=== PATIENT | male | born 1960 | race Hispanic/Latino ===

== ENCOUNTER 2020-04-25 14:00 | Emergency (ER) | payer SELFPAY ==
[2020-04-25] MEDS ORDERED: ACETAMINOPHEN 325 MG TABLET ONE (14:49)
[2020-04-25 16:39] LABS: SARS-COV-2 RT PCR POSITIVE (NEGATIVE)
[2020-04-25 16:57] LABS: Absolute Lymphocytes (CBC) 0.6 K/uL (0.7-4.9); Basophils % 0.2 % (0-1.3); Hematocrit 46.5 % (39.6-49.0); Lymphocytes % 8.3 % (15.3-44.8); RBC Red Blood Cell Count 5.42 M/uL (4.33-5.43)
[2020-04-25 17:06] LABS: Potassium 3.8 mmol/L (3.5-5.1)
--- NOTE | 2020-04-25 17:29 | EDPHYS ---
Physician Documentation [facility] Name: Lukas Gomez Age: 59 yrs Sex: Male : 1960 Arrival Date: 04/25/2020 Time: 14:04 Bed 28 Private MD: ED Physician Jesus Cheung HPI: 04/25 17:25 This 59 yrs old Male presents to ER via Ambulatory with complaints of kb Shortness Of Breath, Decreased Appetite. 17:25 The patient or guardian reports difficulty breathing, flu symptoms, myalgias, no kb appetite. Onset: The symptoms/episode began/occurred 4 day(s) ago. Severity of symptoms: At their worst the symptoms were mild, moderate, in the emergency department the symptoms are unchanged. Modifying factors: The symptoms are alleviated by nothing, the symptoms are aggravated by nothing. Associated signs and symptoms: Pertinent positives: fever, Pertinent negatives: chest pain, diarrhea, ear ache, nausea, rhinorrhea, sore throat, vomiting. The patient has not experienced similar symptoms in the past. The patient has not recently seen a physician. Pt reports he hasn't had an appetite for 4 days and he sometimes gets shortness of breath on exertion. . Historical: - Allergies: 14:23 No Known Allergies; em - PMHx: 14:23 None; em - PSHx: 14:23 None; em - Immunization history:: Adult Immunizations up to date. - Social history:: Smoking status: Patient denies any tobacco usage or history of. ROS: 17:24 ENT: Negative for injury, pain, and discharge, Cardiovascular: Negative for chest pain, kb palpitations, and edema, Abdomen/GI: Negative for abdominal pain, nausea, vomiting, diarrhea, and constipation, Back: Negative for injury and pain, MS/Extremity: Negative for injury and deformity, Skin: Negative for injury, rash, and discoloration, Neuro: Negative for headache, weakness, numbness, tingling, and seizure. 17:24 Constitutional: Positive for poor PO intake, Negative for body aches, chills, fatigue, fever, malaise, weight loss. 17:24 Respiratory: Positive for dyspnea on exertion. Exam: 17:25 Constitutional: This is a well developed, well nourished patient who is awake, alert, kb and in no acute distress. Head/Face: Normocephalic, atraumatic. Chest/axilla: Normal chest wall appearance and motion. Nontender with no deformity. No lesions are appreciated. Cardiovascular: Regular rate and rhythm with a normal S1 and S2. No gallops, murmurs, or rubs. Normal PMI, no JVD. No pulse deficits. Respiratory: Lungs have equal breath sounds bilaterally, clear to auscultation and percussion. No rales, rhonchi or wheezes noted. No increased work of breathing, no retractions or nasal flaring. Abdomen/GI: Soft, non-tender, with normal bowel sounds. No distension or tympany. No guarding or rebound. No evidence of tenderness throughout. Back: No spinal tenderness. No costovertebral tenderness. Full range of motion. Skin: Warm, dry with normal turgor. Normal color with no rashes, no lesions, and no evidence of cellulitis. MS/ Extremity: Pulses equal, no cyanosis. Neurovascular intact. Full, normal range of motion. Neuro: Awake and alert, GCS 15, oriented to person, place, time, and situation. Cranial nerves II-XII grossly intact. Motor strength 5/5 in all extremities. Sensory grossly intact. Cerebellar exam normal. Normal gait. Vital Signs: 14:19 BP 136 / 86; Pulse 112; Resp 18; Temp 101.4; Pulse Ox 95% on R/A; Weight 99.79 kg; em Height 5 ft. 9 in. (175.26 cm); Pain 0/10; 16:00 BP 131 / 94; Pulse 109; Resp 20; Pulse Ox 95% on R/A; vg1 17:00 BP 122 / 91; Pulse 107; Resp 20; Temp 99.0; Pulse Ox 93% on R/A; vg1 17:20 Temp 99.0; vg1 14:19 Body Mass Index 32.49 (99.79 kg, 175.26 cm) em MDM: 16:03 Patient medically screened. kb 17:24 Data reviewed: vital signs, nurses notes. Data interpreted: Pulse oximetry: on room air kb is 95 %. Interpretation: normal. Counseling: I had a detailed discussion with the patient and/or guardian regarding: the historical points, exam findings, and any diagnostic results supporting the discharge/admit diagnosis, lab results, radiology results, the need for outpatient follow up, a family practitioner, to return to the emergency department if symptoms worsen or persist or if there are any questions or concerns that arise at home. 04/25 16:25 Order name: Chest Single View XRAY; Complete Time: 17:53 kb 04/25 16:25 Order name: CBC with Diff; Complete Time: 17:21 kb 04/25 16:25 Order name: Basic Metabolic Panel; Complete Time: 17:12 kb 04/25 16:39 Order name: COVID-19/FLU A+B; Complete Time: 16:40 EDMS 04/25 16:25 Order name: IV Start; Complete Time: 16:39 kb Administered Medications: 14:39 Drug: Tylenol 650 mg Route: PO; em 17:20 Follow up: Temp 99.0; Response: Temperature is decreased vg1 17:55 Drug: Zithromax 500 mg Route: PO; vg1 18:08 Follow up: Response: Medication administered at discharge. vg1 17:55 Drug: SOLU-Medrol 125 mg Route: IVP; Site: left antecubital; vg1 18:07 Follow up: Response: Medication administered at discharge. vg1 Disposition: 04/26 06:08 Co-signature as Attending Physician, Jesus Cheung MD I agree with the assessment and kdr plan of care. Disposition: 04/25/20 17:27 Discharged to Home. Impression: Coronavirus infection, unspecified, Viral pneumonia, unspecified. - Condition is Stable. - Discharge Instructions: Viral Respiratory Infection, Baxv-Qo-Geni, COVID-19. - Prescriptions for Prednisone 20 mg Oral Tablet - take 1 tablet by ORAL route once daily for 5 days; 5 tablet. Albuterol Sulfate 90 mcg/actuation - inhale 1-2 puff by INHALATION route every 4-6 hours; 1 Inhaler. Zithromax 500 mg Oral Tablet - take 1 tablet by ORAL route once daily for 5 days; 5 tablet. - Medication Reconciliation Form, Thank You Letter, Antibiotic Education, Prescription Opioid Use form. - Follow up: Emergency Department; When: As needed; Reason: Worsening of condition. Follow up: Private Physician; When: 2 - 3 days; Reason: Recheck today's complaints, Continuance of care, Re-evaluation by your physician. Signatures: Dispatcher [employer] Lulu Laureano, CLIENT CARE CONSULTANT-C CLIENT CARE CONSULTANT-Ckb Jesus Cheung MD MD kdr Mart Morales, RN RN Kellee Crawford, RN RN vg1 Corrections: (The following items were deleted from the chart) 04/25 15:31 14:33 CORONAVIRUS+MR.LAB.BRZ ordered. EDMS EDMS 15:32 14:33 Influenza Screen (A \T\ B)+BA.LAB.BRZ ordered. EDIN EDMS 18:07 17:27 04/25/2020 17:27 Discharged to Home. Impression: Coronavirus infection, vg1 unspecified; Viral pneumonia, unspecified. Condition is Stable. Forms are Medication Reconciliation Form, Thank You Letter, Antibiotic Education, Prescription Opioid Use. Follow up: Emergency Department; When: As needed; Reason: Worsening of condition. Follow up: Private Physician; When: 2 - 3 days; Reason: Recheck today's complaints, Continuance of care, Re-evaluation by your physician. kb
--- NOTE | 2020-04-25 17:29 | ER ---
Nurse's Notes [facility] Name: Lukas Gomez Age: 59 yrs Sex: Male : 1960 Arrival Date: 04/25/2020 Time: 14:04 Bed 28 Private MD: Diagnosis: Coronavirus infection, unspecified;Viral pneumonia, unspecified Presentation: 04/25 14:19 Chief complaint: Patient states: decreased appetite for 4 days, denies body aches, em denies fever or N/V, had covid test at [facility] 2 days ago but was not given any results. Coronavirus screen: Client presents with at least one sign or symptom that may indicate coronavirus-19. Standard/surgical mask placed on the client. Provider contacted for isolation considerations. The client indicates previous COVID test results are pending. Date of collection: March 23, 2021. Ebola Screen: Patient negative for fever greater than or equal to 101.5 degrees Fahrenheit, and additional compatible Ebola Virus Disease symptoms Patient denies exposure to infectious person. Patient denies travel to an Ebola-affected area in the 21 days before illness onset. No symptoms or risks identified at this time. Initial Sepsis Screen: Does the patient meet any 2 criteria? Temp <36.0*C (96.8*F)) or > 38.3*C (100.9*F). HR > 90 bpm. Does the patient have a suspected source of infection? No. Patient's initial sepsis screen is negative. Risk Assessment: Do you want to hurt yourself or someone else? Patient reports no desire to harm self or others. Onset of symptoms was April 21, 2019. 14:19 Method Of Arrival: Ambulatory em 14:19 Acuity: MITZY 3 em Triage Assessment: 16:20 Respiratory: Reports cough that is non-productive, Onset: The symptoms/episode vg1 began/occurred gradually, the patient has mild shortness of breath. Historical: - Allergies: 14:23 No Known Allergies; em - PMHx: 14:23 None; em - PSHx: 14:23 None; em - Immunization history:: Adult Immunizations up to date. - Social history:: Smoking status: Patient denies any tobacco usage or history of. Screenin:20 Abuse screen: Denies threats or abuse. Nutritional screening: No deficits noted. vg1 Tuberculosis screening: No symptoms or risk factors identified. Fall Risk None identified. Assessment: 16:20 General: Appears in no apparent distress. comfortable, Behavior is calm, cooperative. vg1 16:20 Pain: Denies pain. Neuro: Level of Consciousness is awake, alert, obeys commands, vg1 Oriented to person, place, time, situation. Cardiovascular: Patient's skin is warm and dry. Respiratory: Airway is patent Respiratory effort is even, unlabored, Respiratory pattern is regular, symmetrical, Breath sounds are clear bilaterally. GI: No signs and/or symptoms were reported involving the gastrointestinal system. : No signs and/or symptoms were reported regarding the genitourinary system. EENT: No signs and/or symptoms were reported regarding the EENT system. Derm: Skin is intact, is healthy with good turgor. Musculoskeletal: Circulation, motion, and sensation intact. 16:37 Reassessment: Lab called spoke with Neeta Craven, and patient Covid results are vg1 Positive. Provider Notified. 17:45 Reassessment: Patient appears in no apparent distress at this time. Patient is alert, vg1 oriented x 3, equal unlabored respirations, skin warm/dry/pink. Patient denies pain at this time. Vital Signs: 14:19 BP 136 / 86; Pulse 112; Resp 18; Temp 101.4; Pulse Ox 95% on R/A; Weight 99.79 kg; em Height 5 ft. 9 in. (175.26 cm); Pain 0/10; 16:00 BP 131 / 94; Pulse 109; Resp 20; Pulse Ox 95% on R/A; vg1 17:00 BP 122 / 91; Pulse 107; Resp 20; Temp 99.0; Pulse Ox 93% on R/A; vg1 17:20 Temp 99.0; vg1 14:19 Body Mass Index 32.49 (99.79 kg, 175.26 cm) em ED Course: 14:04 Patient arrived in ED. rg4 14:22 Triage completed. em 14:23 Arm band placed on. em 14:32 [facility] Welch [facility]C [facility]. kb 14:32 Jesus Cheung MD is Attending Physician. kb 14:39 COVID swab sent to lab. em 16:09 Kellee Ruiz, MIREILLE is Primary Nurse. vg1 16:20 Patient has correct armband on for positive identification. Bed in low position. Call vg1 light in reach. Side rails up X 1. 16:38 Initial lab(s) drawn, by me, sent to lab. Inserted saline lock: 14 gauge 20 gauge in jp3 left antecubital area, using aseptic technique. Blood collected. Inserted saline lock:. Patient maintains SpO2 saturation greater than 95% on room air. 17:16 Chest Single View XRAY In Process Unspecified. EDMS 18:05 No provider procedures requiring assistance completed. IV discontinued, intact, vg1 bleeding controlled, No redness/swelling at site. Pressure dressing applied. Administered Medications: 14:39 Drug: Tylenol 650 mg Route: PO; em 17:20 Follow up: Temp 99.0; Response: Temperature is decreased vg1 17:55 Drug: Zithromax 500 mg Route: PO; vg1 18:08 Follow up: Response: Medication administered at discharge. vg1 17:55 Drug: SOLU-Medrol 125 mg Route: IVP; Site: left antecubital; vg1 18:07 Follow up: Response: Medication administered at discharge. vg1 Outcome: 17:27 Discharge ordered by . kb 18:06 Discharged to home ambulatory. vg1 18:06 Condition: stable 18:06 Discharge instructions given to patient, Instructed on discharge instructions, follow up and referral plans. medication usage, Demonstrated understanding of instructions, follow-up care, medications, Prescriptions given X 3. 18:07 Patient left the ED. vg1 Signatures: Dispatcher [employer] EDCA Lulu Welch, DESIRE-C [employer]ANT OPERATOR-Mart Sheppard, RN RN Jeanine Crawford4 Dipak Fong 3 Kellee Ruiz, RN RN vg1 Corrections: (The following items were deleted from the chart) 17:21 17:00 BP 122 / 91; Pulse 107bpm; Resp 20bpm; Pulse Ox 93% RA; vg1 vg1
--- NOTE | 2020-04-25 17:36 | RAD REPORT ---
EXAM DESCRIPTION: Ang Single View04/25/2020 5:16 pm CLINICAL HISTORY: Shortness of breath COMPARISON: 2010 FINDINGS: The lungs appear mildly hazy The heart is normal size IMPRESSION: Lungs appear mildly hazy which may indicate pneumonia
[2020-04-25] MEDS ORDERED: METHYLPREDNISOLONE 125 MG INJ ONE (17:45)
[2020-04-25] MEDS ORDERED: AZITHROMYCIN 250 MG TAB ONE (17:45)
[2020-04-25 18:50] VITALS: BP 122/91; TEMP 99; O2SAT 93
== END 2020-04-25 18:07 | disposition home or self-care (01) ==
LOC: ER 14:00
DX: U07.1 COVID-19 (principal); J12.82 Pneumonia due to coronavirus disease 2019
CPT/HCPCS: 0240U; 36415; 71045; 80048; 85025; 96374; 99284; J2930

== ENCOUNTER 2020-05-16 07:55 | Emergency (ER) | payer SELFPAY ==
[2020-05-16 10:35] LABS: SARS-COV-2 RT PCR POSITIVE (NEGATIVE)
--- NOTE | 2020-05-16 11:34 | ER ---
Nurse's Notes [facility] Name: Lukas Martinez Age: 59 yrs Sex: Male : 1960 Arrival Date: 05/16/2020 Time: 08:11 Bed 28 Private MD: Diagnosis: SARS-associated coronavirus as the cause of diseases classified elsewhere Presentation: 05/16 08:19 Chief complaint: Patient states: "I need a repeat COVID test to go back to work". Pt aa5 reports he was positive COVID-19 approximately 15 days ago and denies any more symptoms. Coronavirus screen: At this time, the client does not indicate any symptoms associated with coronavirus-19. Ebola Screen: Patient negative for fever greater than or equal to 101.5 degrees Fahrenheit, and additional compatible Ebola Virus Disease symptoms. Initial Sepsis Screen: Does the patient meet any 2 criteria? No. Patient's initial sepsis screen is negative. Does the patient have a suspected source of infection? No. Patient's initial sepsis screen is negative. Risk Assessment: Do you want to hurt yourself or someone else? Patient reports no desire to harm self or others. Onset of symptoms was May 16, 2020. 08:19 Acuity: MITZY 5 aa5 08:19 Method Of Arrival: Ambulatory aa5 Historical: - Allergies: 08:22 No Known Allergies; aa5 - Home Meds: 08:22 None [Active]; aa5 - PMHx: 08:22 None; aa5 - PSHx: 08:22 None; aa5 - Immunization history:: Adult Immunizations unknown. - Social history:: Smoking status: Patient denies any tobacco usage or history of. Screenin:25 Abuse screen: Denies threats or abuse. Nutritional screening: No deficits noted. aa5 Tuberculosis screening: No symptoms or risk factors identified. Fall Risk None identified. Assessment: 08:25 General: Appears comfortable, Behavior is calm, cooperative. Pain: Denies pain. Neuro: aa5 Level of Consciousness is awake, alert, obeys commands, Oriented to person, place, time, situation. Cardiovascular: Patient's skin is warm and dry. Respiratory: Airway is patent Respiratory effort is even, unlabored, Respiratory pattern is regular, symmetrical, Denies cough, shortness of breath. GI: Patient currently denies diarrhea, nausea, vomiting. : No signs and/or symptoms were reported regarding the genitourinary system. EENT: No signs and/or symptoms were reported regarding the EENT system. Derm: Skin is dry, Skin is normal, Skin temperature is warm. Musculoskeletal: Range of motion: intact in all extremities. 11:00 Reassessment: Patient is alert, oriented x 3, equal unlabored respirations, skin aa5 warm/dry/pink. 12:00 Reassessment: Patient is alert, oriented x 3, equal unlabored respirations, skin aa5 warm/dry/pink. Vital Signs: 08:19 BP 139 / 99; Pulse 87; Resp 18 S; Temp 97.8(TE); Pulse Ox 98% on R/A; aa5 11:00 BP 124 / 85; Pulse 78; Resp 18 S; Temp 97.5(TE); Pulse Ox 97% on R/A; aa5 ED Course: 08:11 Patient arrived in ED. as 08:19 Arm band placed on. aa5 08:21 Triage completed. aa5 08:23 Zeynep Hanson, RN is Primary Nurse. aa5 08:25 Patient has correct armband on for positive identification. Bed in low position. Call aa5 light in reach. Side rails up X 1. 08:29 Jesus Cheung MD is Attending Physician. kdr 12:00 No provider procedures requiring assistance completed. Patient did not have IV access aa5 during this emergency room visit. Administered Medications: No medications were administered Outcome: 11:34 Discharge ordered by . kdr 12:00 Discharged to home ambulatory. aa5 12:00 Condition: stable 12:00 Discharge instructions given to patient, Instructed on discharge instructions, follow up and referral plans. Demonstrated understanding of instructions, follow-up care. 12:05 Patient left the ED. aa5 Signatures: Jesus Cheung MD MD kdr Martinez, Amelia as Calderon, Audri, RN RN aa5
--- NOTE | 2020-05-16 11:34 | EDPHYS ---
Physician Documentation [facility] Name: Lukas Martinez Age: 59 yrs Sex: Male : 1960 Arrival Date: 05/16/2020 Time: 08:11 Bed 28 Private MD: ED Physician Jesus Cheung HPI: 05/16 16:02 This 59 yrs old Male presents to ER via Ambulatory with complaints of covid kdr test. 16:02 Needs a negative COVID test to go back to work and has been unable to get one anywhere kdr . Onset: The symptoms/episode began/occurred gradually, 1 month(s) ago. Severity of symptoms: At their worst the symptoms were moderate in the emergency department the symptoms have resolved. The patient has not experienced similar symptoms in the past. The patient has not recently seen a physician. Gener ally weak and feeling poorly when ill but has all resolved at this time and he is wanting to go back to work. Historical: - Allergies: 08:22 No Known Allergies; aa5 - Home Meds: 08: None [Active]; aa5 - PMHx: 08:22 None; aa5 - PSHx: 08:22 None; aa5 - Immunization history:: Adult Immunizations unknown. - Social history:: Smoking status: Patient denies any tobacco usage or history of. ROS: 16:02 Constitutional: Negative for fever, chills, and weight loss, Eyes: Negative for injury, kdr pain, redness, and discharge, ENT: Negative for injury, pain, and discharge, Neck: Negative for injury, pain, and swelling, Cardiovascular: Negative for chest pain, palpitations, and edema, Respiratory: Negative for shortness of breath, cough, wheezing, and pleuritic chest pain, Abdomen/GI: Negative for abdominal pain, nausea, vomiting, diarrhea, and constipation, Back: Negative for injury and pain, : Negative for injury, bleeding, discharge, and swelling, MS/Extremity: Negative for injury and deformity, Skin: Negative for injury, rash, and discoloration, Neuro: Negative for headache, weakness, numbness, tingling, and seizure activity. Psych: Negative for depression, anxiety, suicide ideation, homicidal ideation, and hallucinations, Allergy/Immunology: Negative for hives, rash, and allergies, Endocrine: Negative for neck swelling, polydipsia, polyuria, polyphagia, and marked weight changes, Hematologic/Lymphatic: Negative for swollen nodes, abnormal bleeding, and unusual bruising. Exam: 16:02 Constitutional: This is a well developed, well nourished patient who is awake, alert, kdr and in no acute distress. Head/Face: Normocephalic, atraumatic. Eyes: Pupils equal round and reactive to light, extra-ocular motions intact. Lids and lashes normal. Conjunctiva and sclera are non-icteric and not injected. Cornea within normal limits. Periorbital areas with no swelling, redness, or edema. Neck: Trachea midline, no thyromegaly or masses palpated, and no cervical lymphadenopathy. Supple, full range of motion without nuchal rigidity, or vertebral point tenderness. No Meningismus. Chest/axilla: Normal chest wall appearance and motion. Nontender with no deformity. No lesions are appreciated. Cardiovascular: Regular rate and rhythm with a normal S1 and S2. No gallops, murmurs, or rubs. Normal PMI, no JVD. No pulse deficits. Respiratory: Lungs have equal breath sounds bilaterally, clear to auscultation and percussion. No rales, rhonchi or wheezes noted. No increased work of breathing, no retractions or nasal flaring. Abdomen/GI: Soft, non-tender, with normal bowel sounds. No distension or tympany. No guarding or rebound. No evidence of tenderness throughout. Back: No spinal tenderness. No costovertebral tenderness. Full range of motion. Skin: Warm, dry with normal turgor. Normal color with no rashes, no lesions, and no evidence of cellulitis. MS/ Extremity: Pulses equal, no cyanosis. Neurovascular intact. Full, normal range of motion. Neuro: Awake and alert, GCS 15, oriented to person, place, time, and situation. Cranial nerves II-XII grossly intact. Motor strength 5/5 in all extremities. Sensory grossly intact. Cerebellar exam normal. Normal gait. Psych: Awake, alert, with orientation to person, place and time. Behavior, mood, and affect are within normal limits. Vital Signs: 08:19 BP 139 / 99; Pulse 87; Resp 18 S; Temp 97.8(TE); Pulse Ox 98% on R/A; aa5 11:00 BP 124 / 85; Pulse 78; Resp 18 S; Temp 97.5(TE); Pulse Ox 97% on R/A; aa5 MDM: 11:34 Patient medically screened. kdr 16:02 Data reviewed: vital signs, nurses notes, lab test result(s). Counseling: I had a kdr detailed discussion with the patient and/or guardian regarding: the historical points, exam findings, and any diagnostic results supporting the discharge/admit diagnosis, lab results, the need for outpatient follow up. 05/16 10:35 Order name: COVID-19/FLU A+B EDMS Administered Medications: No medications were administered Disposition: 05/16/20 11:34 Discharged to Home. Impression: SARS-associated coronavirus as the cause of diseases classified elsewhere. - Condition is Stable. - Discharge Instructions: COVID-19. - Medication Reconciliation Form, Thank You Letter form. - Follow up: Private Physician; When: 2 - 3 days; Reason: If symptoms return, Further diagnostic work-up, Recheck today's complaints, Continuance of care, Re-evaluation by your physician. - Problem is an ongoing problem. - Symptoms are unchanged. Signatures: Dispatcher [employer] EDMS Jesus Cheung MD MD kdr Zeynep Hanson RN RN aa5 Corrections: (The following items were deleted from the chart) 09:50 08:31 Influenza Screen (A \T\ B)+BA.LAB.BRZ ordered. EDMT EDMS 09:50 08:31 CORONAVIRUS+MR.LAB.BRZ ordered. EDMT EDMS 12:05 11:34 05/16/2020 11:34 Discharged to Home. Impression: SARS-associated coronavirus as aa5 the cause of diseases classified elsewhere. Condition is Stable. Forms are Medication Reconciliation Form, Thank You Letter, Antibiotic Education, Prescription Opioid Use. Follow up: Private Physician; When: 2 - 3 days; Reason: If symptoms return, Further diagnostic work-up, Recheck today's complaints, Continuance of care, Re-evaluation by your physician. Problem is an ongoing problem. Symptoms are unchanged. kdr
[2020-05-16 12:09] VITALS: BP 139/99; TEMP 97.8; O2SAT 98
== END 2020-05-16 12:05 | disposition home or self-care (01) ==
LOC: ER 07:55
DX: U07.1 COVID-19 (principal)
CPT/HCPCS: 0240U; 99281

== ENCOUNTER 2020-09-02 08:23 | Emergency (ER) | payer SELFPAY ==
[2020-09-02 10:29] LABS: Absolute Lymphocytes (CBC) 1.5 K/uL (0.7-4.9); Basophils % 0.8 % (0-1.3); Hematocrit 42.8 % (39.6-49.0); Lymphocytes % 20.8 % (15.3-44.8); MPV 9.3 fL (7.6-11.3); RBC Red Blood Cell Count 4.96 M/uL (4.33-5.43)
--- NOTE | 2020-09-02 10:56 | ER ---
Nurse's Notes [facility] Name: Lukas Martinez Age: 60 yrs Sex: Male : 1960 Arrival Date: 09/02/2020 Time: 08:25 Bed 16 Private MD: Diagnosis: Polyarthritis, unspecified Presentation: 09/02 08:38 Method Of Arrival: Ambulatory sv 08:39 Chief complaint: Patient states: arcelia hand numbness, when he squats down his knees hurt sv to get back up, entire body tingling x 1 month has been constant but has always had this intermittently. Coronavirus screen: Client denies travel out of the [place] in the last 14 days. At this time, the client does not indicate any symptoms associated with coronavirus-19. Risk Assessment: Do you want to hurt yourself or someone else? Patient reports no desire to harm self or others. Onset of symptoms is unknown. 08:39 Acuity: MITZY 3 sv 08:41 Ebola Screen: No symptoms or risks identified at this time. Initial Sepsis Screen: Does sv the patient meet any 2 criteria? No. Patient's initial sepsis screen is negative. Does the patient have a suspected source of infection? No. Patient's initial sepsis screen is negative. Triage Assessment: 08:44 General: Appears in no apparent distress. comfortable, Behavior is calm, cooperative, sv appropriate for age. Neuro: Level of Consciousness is awake, alert, obeys commands, Oriented to person, place, time, situation, Moves all extremities. Weakness Gait is steady. Respiratory: Respiratory effort is even, unlabored. Historical: - Allergies: 08:38 No Known Allergies; sv - Immunization history:: Client reports receiving the 2nd dose of the Covid vaccine, Client reports receiving the 1st dose of the Covid vaccine. - Social history:: Smoking status: Patient denies any tobacco usage or history of. - Family history:: not pertinent. Screenin:59 Abuse screen: Denies threats or abuse. Denies injuries from another. Nutritional tr6 screening: No deficits noted. Tuberculosis screening: No symptoms or risk factors identified. Fall Risk None identified. Assessment: 10:00 General: Appears in no apparent distress. Behavior is calm, cooperative, appropriate tr6 for age, pt c/o numbness in hands and feet. Pain: Complains of pain in hands and feet. Neuro: No deficits noted. Cardiovascular: No deficits noted. Respiratory: No deficits noted. GI: No deficits noted. : No deficits noted. EENT: No deficits noted. Derm: No deficits noted. Musculoskeletal: No deficits noted. 11:58 Reassessment: pt labs have hemolyzed for the third time. MD Hernandez aware and is OK tr6 with discharging pt at this time. Vital Signs: 08:41 BP 138 / 87; Pulse 90; Resp 16; Temp 98; Pulse Ox 99% ; Weight 90.72 kg; Height 5 ft. 9 sv in. (175.26 cm); 08:41 Body Mass Index 29.54 (90.72 kg, 175.26 cm) sv ED Course: 08:25 Patient arrived in ED. ds1 08:37 Arm band placed on. sv 08:41 Triage completed. sv 09:57 Brook Hernandez MD is Attending Physician. ma2 10:09 Kristine Simon, RN is Primary Nurse. tr6 10:21 Initial lab(s) drawn, by ga, sent to lab. Inserted saline lock: 20 gauge in left wrist, 3 using aseptic technique. Blood collected. 12:00 Patient has correct armband on for positive identification. Bed in low position. Side tr6 rails up X 1. 12:00 No provider procedures requiring assistance completed. tr6 12:00 Patient did not have IV access during this emergency room visit. tr6 Administered Medications: No medications were administered Outcome: 10:55 Discharge ordered by . ma2 12:00 Discharged to home ambulatory. tr6 12:00 Condition: good 12:00 Discharge instructions given to patient, Instructed on discharge instructions, follow up and referral plans. medication usage, safety practices, Demonstrated understanding of instructions, follow-up care, medications, Prescriptions given X 2. 12:01 Patient left the ED. tr6 Signatures: Veronica Elizondo, RN RN Rowena Sow ds1 Priyanka Jacome 3 Brook Hernandez MD MD ma2 Ramnanan, Tiffany, MIREILLE RN tr6 Corrections: (The following items were deleted from the chart) 08:44 08:41 Pulse 90bpm; Resp 16bpm; Pulse Ox 99%; Temp 98F; 90.72 kg; Height 5 ft. 9 in.; sv BMI: 29.5; sv
--- NOTE | 2020-09-02 10:56 | EDPHYS ---
Physician Documentation [facility] Name: Lukas Martinez Age: 60 yrs Sex: Male : 1960 Arrival Date: 09/02/2020 Time: 08:25 Bed 16 Private MD: ED Physician Brook Hernandez HPI: 09/02 10:53 This 60 yrs old Male presents to ER via Ambulatory with complaints of ma2 Hand/Foot/Leg Numbness. 10:53 Onset: The symptoms/episode began/occurred gradually, 3 day(s) ago. Severity of ma2 symptoms: At their worst the symptoms were moderate in the emergency department the symptoms are unchanged. The patient has experienced similar episodes in the past. has generalized arthritis and rash that has resolved. this issue is chronic and fluctuating in severity and has improved today . Historical: - Allergies: 08:38 No Known Allergies; sv - Immunization history:: Client reports receiving the 2nd dose of the Covid vaccine, Client reports receiving the 1st dose of the Covid vaccine. - Social history:: Smoking status: Patient denies any tobacco usage or history of. - Family history:: not pertinent. ROS: 10:53 Constitutional: Negative for fever, chills, and weight loss. ma2 10:53 All other systems are negative. Exam: 10:53 Constitutional: This is a well developed, well nourished patient who is awake, alert, ma2 and in no acute distress. Head/Face: Normocephalic, atraumatic. Eyes: Pupils equal round and reactive to light, extra-ocular motions intact. Lids and lashes normal. Conjunctiva and sclera are non-icteric and not injected. Cornea within normal limits. Periorbital areas with no swelling, redness, or edema. ENT: Nares patent. No nasal discharge, no septal abnormalities noted. Tympanic membranes are normal and external auditory canals are clear. Oropharynx with no redness, swelling, or masses, exudates, or evidence of obstruction, uvula midline. Mucous membranes moist. Neck: Trachea midline, no thyromegaly or masses palpated, and no cervical lymphadenopathy. Supple, full range of motion without nuchal rigidity, or vertebral point tenderness. No Meningismus. Chest/axilla: Normal chest wall appearance and motion. Nontender with no deformity. No lesions are appreciated. Cardiovascular: Regular rate and rhythm with a normal S1 and S2. No gallops, murmurs, or rubs. Normal PMI, no JVD. No pulse deficits. Respiratory: Lungs have equal breath sounds bilaterally, clear to auscultation and percussion. No rales, rhonchi or wheezes noted. No increased work of breathing, no retractions or nasal flaring. Abdomen/GI: Soft, non-tender, with normal bowel sounds. No distension or tympany. No guarding or rebound. No evidence of tenderness throughout. MS/ Extremity: Pulses equal, no cyanosis. Neurovascular intact. Full, normal range of motion. Neuro: Awake and alert, GCS 15, oriented to person, place, time, and situation. Cranial nerves II-XII grossly intact. Motor strength 5/5 in all extremities. Sensory grossly intact. Cerebellar exam normal. Normal gait. Vital Signs: 08:41 BP 138 / 87; Pulse 90; Resp 16; Temp 98; Pulse Ox 99% ; Weight 90.72 kg; Height 5 ft. 9 sv in. (175.26 cm); 08:41 Body Mass Index 29.54 (90.72 kg, 175.26 cm) sv MDM: 09:57 Patient medically screened. ma2 10:53 Differential Diagnosis RA vs SLE vs other conective tissue disorder . Data reviewed: [facility] vital signs, nurses notes. Counseling: I had a detailed discussion with the patient and/or guardian regarding: the historical points, exam findings, and any diagnostic results supporting the discharge/admit diagnosis, the presence of at least one elevated blood pressure reading (>120/80) during this emergency department visit, the need for outpatient follow up. Response to treatment: There is no appreciated change of the patient's symptoms at this time. 09/02 10:08 Order name: CBC with Diff; Complete Time: 10:39 ma2 09/02 10:37 Order name: Labs - recollect needed: recollect green top; Complete Time: 11:06 bd Administered Medications: No medications were administered Disposition: 09/02/20 10:55 Discharged to Home. Impression: Polyarthritis, unspecified. - Condition is Stable. - Discharge Instructions: Shoulder Range of Motion Exercises, Arthritis, Suvk-va-Ecig. - Prescriptions for Diclofenac Sodium 75 mg Oral Tablet Sustained Release - take 1 tablet by ORAL route 2 times per day; 30 tablet. Medrol (Dustin) 4 mg Oral Tablets, Dose Pack - take 1 tablet by ORAL route as directed - follow package instructions; 1 packet. - Medication Reconciliation Form, Thank You Letter, Antibiotic Education, Prescription Opioid Use form. - Follow up: Private Physician; When: Tomorrow; Reason: If symptoms return, Continuance of care. Signatures: Dispatcher [employer] EDWY Arabella Harrison Stephanie, RN RN Brook Hernandez MD MD ma2 Kristine Simon RN RN tr6 Corrections: (The following items were deleted from the chart) 12:01 10:55 09/02/2020 10:55 Discharged to Home. Impression: Polyarthritis, unspecified. tr6 Condition is Stable. Prescriptions for Diclofenac Sodium 75 mg Oral Tablet Sustained Release - take 1 tablet by ORAL route 2 times per day; 30 tablet, Medrol (Dustin) 4 mg Oral Tablets, Dose Pack - take 1 tablet by ORAL route as directed - follow package instructions; 1 packet. and Forms are Medication Reconciliation Form, Thank You Letter, Antibiotic Education, Prescription Opioid Use. Follow up: Private Physician; When: Tomorrow; Reason: If symptoms return, Continuance of care. ma2
[2020-09-02 12:08] VITALS: BP 138/87; TEMP 98; O2SAT 99
== END 2020-09-02 12:01 | disposition home or self-care (01) ==
LOC: ER 08:23
DX: M15.9 Polyosteoarthritis, unspecified (principal)
CPT/HCPCS: 36415; 85025; 99283

== ENCOUNTER 2021-03-17 09:48 | Emergency (ER) | payer SELFPAY ==
[2021-03-17] MEDS ORDERED: MECLIZINE HCL 12.5 MG TAB ONE (12:43)
[2021-03-17] MEDS ORDERED: DIAZEPAM 10 MG/2 ML INJ SYRINGE ONE (12:43)
--- NOTE | 2021-03-17 12:54 | RAD REPORT ---
EXAM DESCRIPTION: CT - Head Brain Wo Cont - 03/17/2021 12:48 pm CLINICAL HISTORY: DIZZINESS Headache, drowsiness, dizziness COMPARISON: No comparisons TECHNIQUE: All CT scans are performed using dose optimization technique as appropriate and may inclu de automated exposure control or mA/KV adjustment according to patient size. FINDINGS: No intracranial hemorrhage, hydrocephalus or extra-axial fluid collection.Mild brain atrop hy.No areas of brain edema or evidence of midline shift. Opacification left maxillary antrum is observed. The paranasal sinuses and mastoids are otherwise [place] ar. The calvarium is intact. IMPRESSION: No acute intracranial abnormality. Chronic left maxillary sinusitis.
--- NOTE | 2021-03-17 14:50 | EDPHYS ---
Physician Documentation [facility] Name: Lukas Martinez Age: 60 yrs Sex: Male : 1960 Arrival Date: 03/17/2021 Time: 09:51 Bed 8 Private MD: ED Physician Bret Toledo HPI: 03/17 13:36 This 60 yrs old Male presents to ER via Ambulatory with complaints of jr8 Headache, Dizziness. 13:36 This is a 60-year-old male that presented to the emergency room with continued jr8 complaints of dizziness. Patient stated that he has had this over the past couple years but since the of this month became slightly worse. Stated that he had started to vomit with the dizziness. Was seen at [facility] and given meclizine with minimal relief at this time. Denies any other symptoms.. Historical: - Allergies: 10:10 No Known Allergies; ss - PMHx: 10:10 Asthma; ss - PSHx: 10:10 None; ss - Immunization history:: Client reports receiving the 2nd dose of the Covid vaccine. - Social history:: Smoking status: Patient/guardian denies using tobacco, the patient reports quitting approximately 14 years ago. ROS: 13:36 Eyes: Negative for injury, pain, redness, and discharge, ENT: Negative for injury, jr8 pain, and discharge, Neck: Negative for injury, pain, and swelling, Cardiovascular: Negative for chest pain, palpitations, and edema, Respiratory: Negative for shortness of breath, cough, wheezing, and pleuritic chest pain, Abdomen/GI: Negative for abdominal pain, nausea, vomiting, diarrhea, and constipation, Back: Negative for injury and pain, MS/Extremity: Negative for injury and deformity, Skin: Negative for injury, rash, and discoloration. 13:36 Neuro: Positive for dizziness. Exam: 13:36 Constitutional: This is a well developed, well nourished patient who is awake, alert, jr8 and in no acute distress. Eyes: Pupils equal round and reactive to light, extra-ocular motions intact. Lids and lashes normal. Conjunctiva and sclera are non-icteric and not injected. Cornea within normal limits. Periorbital areas with no swelling, redness, or edema. ENT: Nares patent. No nasal discharge, no septal abnormalities noted. Tympanic membranes are normal and external auditory canals are clear. Oropharynx with no redness, swelling, or masses, exudates, or evidence of obstruction, uvula midline. Mucous membranes moist. Neck: Trachea midline, no thyromegaly or masses palpated, and no cervical lymphadenopathy. Supple, full range of motion without nuchal rigidity, or vertebral point tenderness. No Meningismus. Cardiovascular: Regular rate and rhythm with a normal S1 and S2. No gallops, murmurs, or rubs. Normal PMI, no JVD. No pulse deficits. Respiratory: Lungs have equal breath sounds bilaterally, clear to auscultation and percussion. No rales, rhonchi or wheezes noted. No increased work of breathing, no retractions or nasal flaring. Abdomen/GI: Soft, non-tender, with normal bowel sounds. No distension or tympany. No guarding or rebound. No evidence of tenderness throughout. Back: No spinal tenderness. No costovertebral tenderness. Full range of motion. Skin: Warm, dry with normal turgor. Normal color with no rashes, no lesions, and no evidence of cellulitis. MS/ Extremity: Pulses equal, no cyanosis. Neurovascular intact. Full, normal range of motion. Neuro: Awake and alert, GCS 15, oriented to person, place, time, and situation. Cranial nerves II-XII grossly intact. Motor strength 5/5 in all extremities. Sensory grossly intact. Cerebellar exam normal. Normal gait. Vital Signs: 10:05 BP 138 / 91; Pulse 78; Resp 16; Temp 98.1(TE); Pulse Ox 98% on R/A; Weight 90.72 kg; ss Height 5 ft. 9 in. (175.26 cm); Pain 0/10; 12:45 BP 126 / 89; Pulse 69; Resp 18; Pulse Ox 99% ; vg1 13:30 BP 123 / 89; Pulse 74; Resp 18 S; Pulse Ox 100% on R/A; jd3 14:30 BP 125 / 84; Pulse 72; Resp 17 S; Pulse Ox 98% on R/A; jd3 15:30 BP 130 / 81; Pulse 69; Resp 17 S; Pulse Ox 99% on R/A; jd3 10:05 Body Mass Index 29.53 (90.72 kg, 175.26 cm) MDM: 12:11 Patient medically screened. jr8 13:36 Data reviewed: vital signs, nurses notes, radiologic studies, CT scan. Data jr8 interpreted: Pulse oximetry: on room air is 99 %. Interpretation: normal. Counseling: I had a detailed discussion with the patient and/or guardian regarding: the historical points, exam findings, and any diagnostic results supporting the discharge/admit diagnosis, radiology results, the need for outpatient follow up, a neurologist, to return to the emergency department if symptoms worsen or persist or if there are any questions or concerns that arise at home. 03/17 12:34 Order name: CT Head Brain wo Cont; Complete Time: 13:11 jr8 03/17 12:34 Order name: IV; Complete Time: 13:08 jr8 Administered Medications: 13:07 Drug: Valium (diazepam) 2 mg Route: IVP; Site: right antecubital; al4 14:00 Follow up: Response: No adverse reaction jd3 13:08 Drug: Meclizine 50 mg Route: PO; al4 14:00 Follow up: Response: No adverse reaction jd3 Disposition: 03/18 08:53 Co-signature as Attending Physician, Bret Toledo MD I agree with the assessment and lilibeth plan of care. Disposition Summary: 03/17/21 14:49 Discharge Ordered Location: Home jr8 Problem: new jr8 Symptoms: have improved jr8 Condition: Stable jr8 Diagnosis - Other peripheral vertigo jr8 Followup: jr8 - With: Lino Villela MD - When: 5 - 6 days - Reason: Recheck today's complaints, Continuance of care, Re-evaluation by your physician Discharge Instructions: - Discharge Summary Sheet jr8 - Vertigo jr8 Forms: - Medication Reconciliation Form jr8 - Thank You Letter jr8 - Antibiotic Education jr8 - Prescription Opioid Use jr8 Prescriptions: - Valium 2 mg Oral Tablet - take 1 tablet by ORAL route every 8 hours As needed; 20 tablet; Refills: 0, jr8 Product Selection Permitted Signatures: Dispatcher [employer] Bret Light MD MD cha Smirch, Shelby, RN RN Naseem Starks PA PA jr8 Timur Parry al4 Pietro Osullivan RN jd3
--- NOTE | 2021-03-17 14:50 | ER ---
Nurse's Notes [facility] Name: Lukas Martinez Age: 60 yrs Sex: Male : 1960 Arrival Date: 03/17/2021 Time: 09:51 Bed 8 Private MD: Diagnosis: Other peripheral vertigo Presentation: 03/17 10:05 Chief complaint: Patient states: Dizziness, nausea and, tingling to bilateral hands ss that began on 03/12. Pt was seen at [facility] [place] and was given Augmentin, Prednisone and Meclizine to see if it would help, but patient states that it has not gotten any better. Denies cough, fever, but states they told him he had fluid on his R ear. Coronavirus screen: Client denies travel out of the [place] in the last 14 days. Ebola Screen: Patient denies exposure to infectious person. Patient denies travel to an Ebola-affected area in the 21 days before illness onset. Initial Sepsis Screen: Does the patient meet any 2 criteria? No. Patient's initial sepsis screen is negative. Does the patient have a suspected source of infection? No. Patient's initial sepsis screen is negative. Risk Assessment: Do you want to hurt yourself or someone else? Patient reports no desire to harm self or others. Onset of symptoms was March 12, 2021. 10:05 Method Of Arrival: Ambulatory ss 10:05 Acuity: MITZY 3 ss Historical: - Allergies: 10:10 No Known Allergies; ss - PMHx: 10:10 Asthma; ss - PSHx: 10:10 None; ss - Immunization history:: Client reports receiving the 2nd dose of the Covid vaccine. - Social history:: Smoking status: Patient/guardian denies using tobacco, the patient reports quitting approximately 14 years ago. Screenin:48 Abuse screen: Denies threats or abuse. Nutritional screening: No deficits noted. vg1 Tuberculosis screening: No symptoms or risk factors identified. Fall Risk No fall in past 12 months (0 pts). No secondary diagnosis (0 pts). IV access (20 points). Ambulatory Aid- None/Bed Rest/Nurse Assist (0 pts). Gait- Normal/Bed Rest/Wheelchair (0 pts) Mental Status- Oriented to own ability (0 pts). Total Knight Fall Scale indicates No Risk (0-24 pts). Assessment: 12:48 General: Appears in no apparent distress. uncomfortable, Behavior is calm, cooperative. vg1 Pain: Denies pain. Neuro: Level of Consciousness is awake, alert, obeys commands, Oriented to person, place, time, situation, Reports blurred vision dizziness, tingling in HAROON fingers. Denies headache photophobia. Cardiovascular: Patient's skin is warm and dry. Respiratory: Airway is patent Respiratory effort is even, unlabored. GI: Abdomen is round non-distended, Reports nausea, vomiting. : No signs and/or symptoms were reported regarding the genitourinary system. EENT: Reports pain in right ear. Derm: Skin is intact, is healthy with good turgor. Musculoskeletal: Circulation, motion, and sensation intact. 13:45 Reassessment: Patient appears in no apparent distress at this time. Patient and/or jd3 family updated on plan of care and expected duration. Pain level reassessed. Patient is alert, oriented x 3, equal unlabored respirations, skin warm/dry/pink. Patient states feeling better. 14:45 Reassessment: Patient appears in no apparent distress at this time. Patient and/or jd3 family updated on plan of care and expected duration. Pain level reassessed. Patient is alert, oriented x 3, equal unlabored respirations, skin warm/dry/pink. Patient states feeling better. 15:28 Reassessment: Patient appears in no apparent distress at this time. Patient and/or jd3 family updated on plan of care and expected duration. Pain level reassessed. Patient is alert, oriented x 3, equal unlabored respirations, skin warm/dry/pink. Patient states feeling better. Vital Signs: 10:05 BP 138 / 91; Pulse 78; Resp 16; Temp 98.1(TE); Pulse Ox 98% on R/A; Weight 90.72 kg; ss Height 5 ft. 9 in. (175.26 cm); Pain 0/10; 12:45 BP 126 / 89; Pulse 69; Resp 18; Pulse Ox 99% ; vg1 13:30 BP 123 / 89; Pulse 74; Resp 18 S; Pulse Ox 100% on R/A; jd3 14:30 BP 125 / 84; Pulse 72; Resp 17 S; Pulse Ox 98% on R/A; jd3 15:30 BP 130 / 81; Pulse 69; Resp 17 S; Pulse Ox 99% on R/A; jd3 10:05 Body Mass Index 29.53 (90.72 kg, 175.26 cm) ED Course: 09:51 Patient arrived in ED. kc5 10:10 Triage completed. ss 10:10 Arm band placed on right wrist. 12:11 Naseem Starks PA is PHCP. jr8 12:11 Bret Toledo MD is Attending Physician. jr8 12:40 Pietro Osullivan, RN is Primary Nurse. jd3 12:47 CT Head Brain wo Cont In Process Unspecified. EDMS 12:48 Patient has correct armband on for positive identification. Bed in low position. Call vg1 light in reach. Side rails up X 1. 12:48 No provider procedures requiring assistance completed. vg1 13:08 Inserted saline lock: 22 gauge in right antecubital area, using aseptic technique. al4 14:49 Lino Villela MD is Referral Physician. jr8 15:29 IV discontinued, intact, bleeding controlled, No redness/swelling at site. Pressure jd3 dressing applied. Administered Medications: 13:07 Drug: Valium (diazepam) 2 mg Route: IVP; Site: right antecubital; al4 14:00 Follow up: Response: No adverse reaction jd3 13:08 Drug: Meclizine 50 mg Route: PO; al4 14:00 Follow up: Response: No adverse reaction jd3 Outcome: 14:49 Discharge ordered by MD. jr8 15:29 Discharged to home ambulatory, with family. jd3 15:29 Condition: stable 15:29 Discharge instructions given to patient, Instructed on discharge instructions, follow up and referral plans. medication usage, Demonstrated understanding of instructions, follow-up care, medications, Prescriptions given X 1. 15:29 Patient left the ED. jd3 Signatures: Dispatcher [employer] EDPR Emelina Kimbrough RN MIREILLE Naseem Starks PA PA jr8 Pietro Osullivan, RN RN jKellee Moreno RN RN vg1 Esperanza Anaya kc5 Timur Parry al4
[2021-03-17 15:34] VITALS: TEMP 98.1
[2021-03-17 15:35] VITALS: BP 126/89; O2SAT 99
--- NOTE | 2021-03-18 07:08 | EKG ---
Test Date: 2021-03-17 Test Time: 12:24:36 Crankshaft Balancer: SHIRA MEASUREMENT RESULTS: Intervals: Rate: 68 GA: 164 QRSD: 84 QT: 380 QTc: 404 Parrott: P: 35 GA: 164 QRS: 46 T: 24 INTERPRETIVE STATEMENTS: Normal sinus rhythm Cannot rule out Anterior infarct, age undetermined Abnormal ECG No previous ECG available for comparison Electronically Signed On 03-18-21 07:04:46 [employer]GER [employer]EF[employer] by Omar Sutherland
== END 2021-03-17 15:29 | disposition home or self-care (01) ==
LOC: ER 09:48
DX: H81.399 Other peripheral vertigo, unspecified ear (principal)
CPT/HCPCS: 70450; 93005; 96374; 99284; J3360